=== PATIENT | female | born 1970 | race African-American/Black ===

== ENCOUNTER → 2019-01-22 | Day surgery (SDC) | payer OTHER ==
--- NOTE | 2019-01-29 11:44 | PATH ---
Cytology Non-Gynecological Report Patient Name: MARANDA PATRICIO [facility]. Rec. #: [id number] /Age/Gender: 1970 (Age: 48) / F Account: [id number] Location: RADIOLOGY INTER Taken: 01/22/2019 Received: 01/22/2019 Reported: 01/29/2019 Physicians: Trent Brown M.D. Specimen(s) Received RIGHT THYROID FNA Clinical History Right isthmus nodule, 2.04 x 0.91 x 1.15 cm Final Diagnosis THYROID, RIGHT ISTHMUS, FINE NEEDLE ASPIRATION: UNSATISFACTORY FOR EVALUATION. BETHESDA CLASS I: CYSTIC THYROID LESION WITH MACROPHAGES AND RARE FOLLICULAR CELLS. NUMEROUS MACROPHAGES IN A BACKGROUND OF THIN COLLOID AND RARE SMALL FOLLICULAR CELLS PRESENT. SEE COMMENT. Comment: The specimen has insufficient follicular cell clusters and/or colloid; and suboptimal for complete cytopathologic evaluation according to [employer] [place] System for Reporting Thyroid FNA. If the nodule has worrisome ultrasound imaging properties, suggest repeat FNA, as warranted. Electronically Signed Estephania Genao M.D. Gross Description Received are eight direct smears, four of which are air-dried and Diff-Quik stained, and four of which are alcohol fixed and Pap stained. Also received is 20 ml of bloody formalin from which one cellblock is prepared. Received is a 1.5 ml molecular ThyroSeq tube.
== END | disposition home or self-care (01) ==
LOC: JRADIR 09:49
PROVIDERS: ATTEND Surgery
PROC: 0GBH3ZX Excision of Right Thyroid Gland Lobe, Percutaneous Approach, Diagnostic (ICD-10-PCS; principal; 2019-01-22)
PROC: BG44ZZZ Ultrasonography of Thyroid Gland (ICD-10-PCS; 2019-01-22)
DX: E04.1 Nontoxic single thyroid nodule (principal)
CPT/HCPCS: 76942; 88173; 88305-TC